=== PATIENT | female | born 1970 | race Caucasian/White ===

== ENCOUNTER 2016-08-18 19:27 | Emergency (ER) | payer OTHER ==
[~2016-08-18] VITALS: Ht 167.6 cm; Wt 50.0 kg
[~2016-08-18 19:27] MED LIST: AMBIEN10 MG PO; BENTYL10 MG PO; BIRTH CONTROL PO; CEFUROXIME500 MG PO; CLONAZEPAM0.5 MG PO; CLONAZEPAM1 MG PO; CYCLOBENZAPRINE10 MG PO; ENDOCET 5-3251 EACH PO; EYE DROPS ADVAN15 ML BOTH EYES; KLONOPIN1 MG PO; LEXAPRO10 MG PO; MIRALAX255 GM PO; ONDANSETRON ODT4 MG PO; ORSYTHIA1 EACH PO; OXYCODONE-ACET1 EACH PO; PROMETHAZINE HC25 M1 PO; PROTONIX40 MG PO; SRONYX1 EACH PO; ULTRAM50 MG PO; VENTOLIN HFA18 GM IH; VITAMIN B SHOT; ZOFRAN4 MG PO; ZOLPIDEM TARTRA10 MG PO
[2016-08-18 21:22] LABS: CHLORIDE 105 mEq/L (99-109); HEMATOCRIT 39.1 % (36.0-46.0); MCH 30.5 PG (29.0-34.0); MCHC 32.7 G/DL (30.0-36.0); MCV 93.1 FL (83-99); MEAN PLAT.VOLUME 11.2 uM^3 (9.5-12.4); PLATELET COUNT 244 K/uL (156-360); POTASSIUM 3.6 mEq/L (3.7-5.4); RBC DIS.WIDTH-CV 12.3 % (11.8-14.6); RBC DIS.WIDTH-SD 42.2 % (39-53); SODIUM 139 mEq/L (136-147); WHITE BLOOD COUNT 10.9 K/uL (4.1-10.2)
[2016-08-18 21:24] LABS: GLUCOSE 99 mg/dL (70-99)
[2016-08-18 21:26] LABS: ANION GAP 11 MEQ/L (2-14)
[2016-08-18 21:28] LABS: GFR ESTIMATE (CALCULATED) > 59 mL/min/
[2016-08-18 21:29] LABS: UREA NITROGEN (BUN) 10 mg/dL (9-23)
[2016-08-18 21:59] LABS: INTERNAL CONTROL VALID? YES; MONOSPOT (MONONUCLEOSIS SEROL) NEGATIVE (NEGATIVE)
[2016-08-18] MEDS ORDERED: VENTOLIN HFA18 GM IH (22:26)
[2016-08-18] MEDS ORDERED: TESSALON PERLE100 MG PO (22:26)
[2016-08-18] MEDS ORDERED: ZOVIRAX5 GM TP (22:28)
[2016-08-18 22:41] VITALS: BP 105/79
== END 2016-08-18 23:05 | disposition home or self-care (01) ==
LOC: EME 19:27
PROVIDERS: Physician Assistant
DX: J04.0 Acute laryngitis (principal); J40 Bronchitis, not specified as acute or chronic; J98.01 Acute bronchospasm; Z88.6 Allergy status to analgesic agent; Z88.5 Allergy status to narcotic agent; Z87.442 Personal history of urinary calculi
CPT/HCPCS: 70360; 71020; 80048; 85027; 86308; 93005; 94640; 99281; 99284; J1100

== ENCOUNTER 2017-05-07 09:48 | Emergency (ER) | payer OTHER ==
[~2017-05-07] VITALS: Ht 167.6 cm; Wt 49.5 kg
[~2017-05-07 09:48] MED LIST changes: +TESSALON PERLE100 MG PO; +ZOVIRAX5 GM TP
[2017-05-07 11:05] LABS: HEMATOCRIT 38.4 % (36.0-46.0); MCH 30.9 PG (29.0-34.0); MCHC 33.6 G/DL (30.0-36.0); MCV 92.1 FL (83-99); RBC DIS.WIDTH-CV 12.9 % (11.8-14.6); RBC DIS.WIDTH-SD 43.8 % (39-53); RED BLOOD COUNT 4.17 M/uL (3.80-5.20); WHITE BLOOD COUNT 4.9 K/uL (4.1-10.2)
[2017-05-07 11:17] LABS: CHLORIDE 106 mEq/L (99-109); POTASSIUM 4.3 mEq/L (3.7-5.4); SODIUM 136 mEq/L (136-147)
[2017-05-07 11:19] LABS: GLUCOSE 92 mg/dL (70-99)
[2017-05-07 11:21] LABS: ANION GAP 8 MEQ/L (2-14); TOTAL BILIRUBIN 0.7 mg/dL (0.0-1.0)
[2017-05-07 11:23] LABS: ALKALINE PHOSPHATASE 37 IU/L (3-129); GFR ESTIMATE (CALCULATED) > 59 mL/min/
[2017-05-07 11:24] LABS: UREA NITROGEN (BUN) 11 mg/dL (9-23)
[2017-05-07 11:26] LABS: LIPASE 42 U/L (1.0-51.0)
[2017-05-07 11:33] LABS: QUANTITATIVE HCG < 4.0 MIU/ML
[2017-05-07 11:51] LABS: MEAN PLAT.VOLUME 11.2 uM^3 (9.5-12.4); PLAT.SUFFICIENCY ADEQUATE; PLATELET COUNT 201 K/uL (156-360)
[2017-05-07 14:01] LABS: ADD MIUA? YES; BILIRUBIN NEGATIVE; BLOOD NEGATIVE; COLOR YELLOW ((YELLOW)); GLUCOSE (STRIP) NEGATIVE; KETONES 20; LEUKOCYTES NEGATIVE; NITRITE NEGATIVE; PROTEIN (STRIP) NEGATIVE; UROBILINOGEN 0.2 MG/DL (0.2-1.0)
[2017-05-07 14:04] LABS: BACTERIA NONE SEEN /HPF; EPITHELIAL CELLS 1+ /HPF; MUCUS TRACE /LPF; RED BLOOD CELLS 0-5 /HPF (0-5); UCUL ADDED? NO; WHITE BLOOD CELLS 0-5 /HPF (0-5)
[2017-05-07 14:22] LABS: SPECIFIC GRAVITY 1.085 (1.000-1.030)
[2017-05-07] MEDS ORDERED: CANASA1000 MG PR (15:28)
[2017-05-07] MEDS ORDERED: ASACOL HD800 MG PO (15:28)
[2017-05-07] MEDS ORDERED: PERCOCET 5/31 TABLET PO (15:32)
[2017-05-07 16:11] VITALS: BP 90/54
== END 2017-05-07 16:50 | disposition home or self-care (01) ==
LOC: EME 09:48
DX: K51.90 Ulcerative colitis, unspecified, without complications (principal); Z87.442 Personal history of urinary calculi
CPT/HCPCS: 74177; 80053; 81003; 83690; 84702; 85027; 99281; 99285; J1885; J2270; J2405; J7030